=== PATIENT | male | born 1945 | race Caucasian/White ===

== ENCOUNTER → 2016-09-09 | Outpatient (CLI) | payer OTHER | END | disposition home or self-care (01) | LOC: PCVCIMAG 11:29 | PROVIDERS: ATTEND Internal Medicine Cardiovascular Disease | DX: I35.0 Nonrheumatic aortic (valve) stenosis (principal) | CPT/HCPCS: 93306 ==

== ENCOUNTER → 2016-09-30 | Outpatient (CLI) | payer OTHER | END | disposition home or self-care (01) | LOC: PCVCCLINIC 11:59 | PROVIDERS: ATTEND Internal Medicine Cardiovascular Disease | DX: E78.4 Other hyperlipidemia (principal); R01.1 Cardiac murmur, unspecified; Q23.1 Congenital insufficiency of aortic valve; M19.90 Unspecified osteoarthritis, unspecified site; Z79.899 Other long term (current) drug therapy; Z79.82 Long term (current) use of aspirin | CPT/HCPCS: 80061; 93005; G0463 ==

== ENCOUNTER → 2016-11-01 | Outpatient (CLI) | payer OTHER ==
--- NOTE | 2016-11-03 12:58 | PCVCIMAG ---
APPROVED REPORT Patient Location: Echo lab Room #: Conclusion PCP- Ace Hoffman MD Indications- Bicuspid aortic valve with mild aortic stenosis. Assess Functional Capacity. Treadmill stress as her functional capacity. Baseline EKG sinus rhythm normal tracing pulse 100 blood pressure 160/86 exercise 633 on a Ruben protocol production of chest pain or allergies. Secondary dyspnea shortness of breath. No diagnostic EKG changes were noted. No significant ectopy. Impression #1 no diagnostic EKG changes #2 no reproduction of chest pain or angina #3 no ectopy there is a rate dependent bundle branch block #4 fair exercise tolerance with appropriate hemodynamic response
== END | disposition home or self-care (01) ==
LOC: PCVCIMAG 15:31
PROVIDERS: ATTEND Internal Medicine Cardiovascular Disease
DX: Q23.1 Congenital insufficiency of aortic valve (principal); E78.4 Other hyperlipidemia; M19.90 Unspecified osteoarthritis, unspecified site; Z79.82 Long term (current) use of aspirin
CPT/HCPCS: 93017